=== PATIENT | male | born 1955 | race Caucasian/White ===

== ENCOUNTER 2017-07-16 20:47 | Emergency (ER) | payer BC ==
[2017-07-16 20:56] VITALS: TEMP 98.8; O2SAT 97
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
[2017-07-16 23:54] VITALS: BP 124/70; PULSE 78; RESP 18
== END 2017-07-16 23:53 | disposition home or self-care (01) ==
LOC: C.ER 20:47
DX: S00.83XA Contusion of other part of head, initial encounter (principal); Y09 Assault by unspecified means; Y92.89 Other specified places as the place of occurrence of the external cause